=== PATIENT | male | born 1960 | race Caucasian/White ===

== ENCOUNTER 2025-07-12 14:49 | Outpatient (AMB) | payer OTHER, SELFPAY ==
--- NOTE | 2025-07-12 14:51 | A.OFFPC_ITS ---
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 Patient has not been taking his thyroid meds x 4 months. 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 ?? Prior PCP:? dr Simpson Last office visit/CPE:? . 1 yr ago Acute issue(s):? Est Care ?? PMHx:?Hypothyroidism, ? HLD, SurgHx:?None FHx:? Dad: CVA. Mom: Alzheimers. SocHx: Smokes 1ppd, EtOH Occassionally a couple dr. [facility] Colonoscopy was earlier this year. [facility]. [facility] Medical History (Updated 07/12/25 @ 15:38 by Ben Albert) Shingles Thyroid disorder Surgical History (Updated 07/12/25 @ 15:06 by Mayra Guerrier MA) Hx of colonoscopy (~2024) Family History (Updated 07/12/25 @ 15:07 by Mayra Guerrier MA) Father Cardiovascular disease Prostate cancer Maternal Grandmother Colon cancer Social History (Updated 07/12/25 @ 15:04 by Mayra Guerrier MA) Household Members: Spouse Both parents involved: No Caregiver staying overnight: No Housing: House Are you a primary animal care specialist to a significant other at home: No Do you presently have visiting nurse or other home services: No 75 years or older and lives alone: No Alcohol intake: current Alcohol intake frequency: a few times a month Patient Tobacco Use Status: Current everyday Tobacco user Cigarette Packs Per Day: 1 Cigarettes Per Day: 20 Years Smoked: 35 e-Cigarette/Vaping Use: Never Used Second Hand Smoke Exposure: No service: No Current occupational status: retired Current occupational exposures/hazards: No Cognitive needs: No Hearing needs: No Vision needs: No Questionnaire PHQ-9 Over the last 2 weeks, how often have you been bothered by any of the following problems? 1. Little interest or pleasure in doing things: not at all 2. Feeling down, depressed, or hopeless: not at all 3. Trouble falling or staying asleep, or sleeping too much: not at all 4. Feeling tired or having little energy: not at all 5. Poor appetite or overeating: not at all 6. Feeling bad about yourself - or that you are a failure or have let yourself or your family down: not at all 7. Trouble concentrating on things, such as reading the newspaper or watching television: not at all 8. Moving or speaking so slowly that other people could have noticed. Or the opposite - being so fidgety or restless that you have been moving around a lot more than usual: not at all 9. Thoughts that you would be better off or of hurting yourself in some way: not at all Total score: 0 Depression Screening Interpretation: Negative Depression Screening Done: Yes 02491 - PHQ-9 Billing: Yes Source: Developed by Drs. Olu Clark, Margie Clarke, Darnell Huang and colleagues, with an educational zion from [employer]. Thrive Questionnaire Date Thrive assessed: 07/12/25 I am a: Patient What is your living situation today?: I have a steady place to live Within the past 12 months, did the food you bought not last and you didn't have the money to get more?: Never true Within the past 12 months, did you worry whether your food would run out before you got money to buy more?: Never true Do you have trouble paying for medicines?: No Do you have trouble getting transportation to medical appointments?: I choose not to answer this question Do you have trouble paying your heating and electricity bill?: I choose not to answer this question Do you have trouble taking care of your child, family member or friend?: I choose not to answer this question Do you have trouble with day-to-day activities such as bathing, preparing meals, shopping, managing finances, etc.?: I choose not to answer this question Are you currently unemployed and looking for a job?: I choose not to answer this question Are you interested in more education?: I choose not to answer this question Please select the resources that you would like help with: None Currently or been in a relationship where the following occur: I choose not to answer THRIVE Score: 0 AUDIT C Alcohol Use Questionnaire (AUDIT-C) 1. How often do you have a drink containing alcohol?: 4 or more times a week 2. How many drinks containing alcohol do you have on a typical day when you are drinking?: 1 or 2 3. How often do you have six or more drinks on one occasion?: Never Total Score: 4 LEIGHA-7 AMB Questionnaire LEIGHA-7 Date LEIGHA - 7 assessed: 07/12/25 Feeling nervous, anxious, or on edge: 0 = Not at all Not being able to stop or control worryin = Not at all Worrying too much about different things: 0 = Not at all Trouble relaxin = Not at all Being so restless that it is hard to sit still: 0 = Not at all Becoming easily annoyed or irritable: 0 = Not at all Feeling afraid as if something awful might happen: 0 = Not at all Total LEIGHA-7 score (0-4 normal; 5-9 mild; 10-14 moderate; 15-21 severe): 0 Source: Developed by Drs. Olu Clark, Margie Clarke, Darnell Huang and colleagues, with an educational zion from [employer]. LEIGHA-7 Assessment Billing LEIGHA-7 Assessment Tool: LEIGHA-7 Assessment 26080 Review of Systems Const Denies chills, Denies fatigue, Denies fever(s), Denies headache(s) and Denies weakness Eyes Denies change in vision ENT Denies dizziness, Denies headache(s), Denies hearing loss, Denies nasal congestion, Denies sinus pain, Denies sinus pressure and Denies sore throat Card Denies chest pain, Denies lightheadedness, Denies dyspnea and Denies other (palpitations) Resp Denies cough, Denies dyspnea and Denies wheezing GI Denies abdominal pain, Denies melena, Denies hematochezia, Denies change in bowel habits, Denies dyspepsia and Denies nausea Denies hematuria and Denies dysuria Musc Denies abnormal gait, Denies myalgias, Denies arthralgias, Denies numbness and Denies tingling Skin/Breast Denies rash, Denies unusual bruising and Denies wounds Neuro Denies abnormal gait, Denies dizziness, Denies headache(s), Denies memory loss, Denies numbness, Denies Sensory deficit (Neuro), Denies tingling and Denies weakness Psych Denies anxiety, Denies depression and Denies memory loss Endo Denies cold intolerance, Denies fatigue, Denies heat intolerance, Denies polydipsia and Denies polyuria Gideon/Lymph Denies easy bleeding and Denies easy bruising Aller/Immun Denies wheezing Physical exam (Primary Care) Vital Signs: Last Vital Signs Temp 98.1 F 07/12/25 14:59 Pulse 59 07/12/25 14:59 Resp 14 07/12/25 14:59 BP 155/99 H 07/12/25 14:59 Pulse Ox 98 07/12/25 14:59 Oxygen Delivery Method Room Air 07/12/25 14:59 BMI result Body Mass Index 31.7 Tobacco/Smoking Status: Tobacco use Status Tobacco use date assessed 07/12/25 07/12/25 14:53 Patient Tobacco Use Status Current everyday Tobacco 07/12/25 15:04 e-Cigarette/Vaping Use Never Used 07/12/25 15:04 PHQ-9: PHQ-9 Score PHQ-9: Total score 0 07/12/25 14:58 Depression Screening Interpretation: Negative Thrive Assessment: Date of Thrive Assessment Date Thrive assessed 07/12/25 07/12/25 14:53 Currently or been in a relationship where the following occur: I choose not to answer Const General: no acute distress, well developed, alert and awake Nutritional Appearance: well nourished Orientation/consciousness: patient oriented x3 HENMT Head: Yes normocephalic and Yes atraumatic Ears: hearing grossly normal bilaterally and TM's normal bilaterally General nose exam: Normal external nose present and Normal nares present Mouth: Normal oral and palatal mucosa present and moist mucous membranes Teeth and gingiva: dentition normal Throat: Yes posterior oropharynx normal Eyes General: appearance normal, both eyes and all related structures Pupils: Equal, round and reactive pupils present and Pupil accommodation reflex normal EOM: EOMs intact bilaterally Neck Neck: Yes normal visual inspection, Yes no lymphadenopathy and Yes trachea midline Thyroid: Thyroid normal Carotids: no bruits Lymphatic: no lymphadenopathy noted Chest Chest palpation & inspection: normal inspection of the chest Resp Effort & Inspection: normal respiratory effort Auscultation: clear to auscultation bilaterally Cardio Rate: regular rate Rhythm: regular rhythm Heart sounds: S1 normal heart sound present, S2 normal heart sound present, no gallops, no murmurs and no rubs Bruits: no abdominal aortic bruits and no carotid bruits GI Palpation (GI): No Abdominal aortic bruit present, Soft to palpation, nontender, No hepatosplenomegaly present and No Rebound tenderness present Auscultation: normal bowel sounds General: Yes no CVA tenderness Back/Spine/Pelvis Back: no CVA tenderness Cervical Spine: cervical ROM normal and No Cervical spine tenderness Thoracic/Lumbar Spine: thoraco-lumbar ROM normal, No pain with thoraco-lumbar ROM, No thoracic spinal tenderness and No lumbar spinal tenderness Skin Lesions: no lesions Rashes: no rashes Trauma: no lacerations or abrasions Wounds: no wounds Nails: normal Neuro General: patient oriented x3 Cranial nerves: Yes Equal, round and reactive pupils present Cognition (Neuro): normal cognition Gait exam (Neuro): Normal gait present Motor exam (neuro): 5/5 motor strength present throughout Sensory Exam: No Sensory deficit (Neuro) Deep tendon reflexes (DTR's): Right patellar reflex intensity grade: 2+ and Left patellar reflex intensity grade: 2+ Extrem General: Yes normal to inspection and No edema Psych Appearance: grossly normal Affect: normal affect Attitude: cooperative Thought process: Normal thought process present Coding Level of Care Code Est Pt Level 3 (00185) Diagnoses Adult general medical examination Z00.00 Hypothyroidism E03.9 Smoker F17.200 Hyperlipidemia E78.5 Hearing loss H91.90 Screening for prostate cancer Z12.5 Screening for colon cancer Z12.11 Constipation K59.00 Hypertension I10 Additional Codes LEIGHA-7 Assessment Billing - LEIGHA-7 Assessment Tool: LEIGHA-7 Assessment 08053 ([id number]) PHQ-9 - 86735 - PHQ-9 Billing: Yes ([id number]) Assessment & Plan Assessment & Plan (1) Adult general medical examination: Code(s): Z00.00 - Encounter for general adult medical examination without abnormal findings Category: Medical Plan: 65-year-old male presents as new patient for complete physical exam Exam WNL Encouraged healthy diet with active lifestyle and plenty of exercise (2) Hypothyroidism: Code(s): E03.9 - Hypothyroidism, unspecified Category: Medical Plan: Patient has been off his levothyroxine med for about 4 months. He is uncertain of his dose Will check thyroid hormone levels He will try to get the dose information as well Will follow-up next week to discuss resuming medication. (3) Smoker: Code(s): F17.200 - Nicotine dependence, unspecified, uncomplicated Category: Social Hx Plan: Patient smokes about a pack per day Counseled patient regarding smoking and advised weaning and cessation Last LDCT was about 2 years ago Will refer for lung cancer screening (4) Hyperlipidemia: Code(s): E78.5 - Hyperlipidemia, unspecified Category: Medical Plan: Patient says he does not take medication for his cholesterol any longer Will recheck lipid levels and discuss (5) Hearing loss: Code(s): H91.90 - Unspecified hearing loss, unspecified ear Category: Medical Plan: Patient notes mild change in hearing at right ear subjectively Objectively has slight decrease in hearing at right ear to light noise (6) Screening for prostate cancer: Code(s): Z12.5 - Encounter for screening for malignant neoplasm of prostate Category: Medical Plan: PSA ordered (7) Screening for colon cancer: Code(s): Z12.11 - Encounter for screening for malignant neoplasm of colon Category: Medical Plan: Patient says [facility] Will request report (8) Constipation: Code(s): K59.00 - Constipation, unspecified Category: Medical Plan: Patient notes worsening constipation He has been off his thyroid hormone medication for about 4 months. Encouraged good hydration and will resume thyroid hormone next week after lab work is back Likely constipation will improve with the above. If not he will let me know and we can refer him back to GI (9) Hypertension: Code(s): I10 - Essential (primary) hypertension Category: Medical Plan: Starting losartan. We can follow-up at a subsequent visit Orders: Orders Complete Blood Count Auto Diff Today Z00.00 - Encounter for general adult medical examination without abnormal findings UA CC w/rflx Micro + Cult Today Z00.00 - Encounter for general adult medical examination without abnormal findings Thyroid Stimulating Hormone Today E03.9 - Hypothyroidism, unspecified Comprehensive [place]. Panel Fast Today Z00.00 - Encounter for general adult medical examination without abnormal findings Lipid Panel Today Z00.00 - Encounter for general adult medical examination without abnormal findings Prostate Specific Antigen Scr Today Z12.5 - Encounter for screening for malignant neoplasm of prostate Microalbumin, Random (w Creat) Today I10 - Essential (primary) hypertension Free T4 (Free Thyroxine) Today E03.9 - Hypothyroidism, unspecified Triiodothyronine T3 Total Today E03.9 - Hypothyroidism, unspecified Referrals Lung Cancer Screening Referral F17.200 - Nicotine dependence, unspecified, uncomplicated Audiology Referral H91.90 - Unspecified hearing loss, unspecified ear Medications: New losartan 50 mg PO DAILY 90 tabs 2RF 90 days
[2025-07-12 14:59] VITALS: BP 155/99; PULSE 59; RESP 14; TEMP 36.7; O2SAT 98; BMI 31.7
== END 2025-07-12 15:41 | disposition home or self-care (01) ==
LOC: HO.HMCFM 14:50
PROVIDERS: PCP Family Medicine; Visit Provider Family Medicine
DX: Z00.00 Encounter for general adult medical examination without abnormal findings (principal); E03.9 Hypothyroidism, unspecified; F17.200 Nicotine dependence, unspecified, uncomplicated; E78.5 Hyperlipidemia, unspecified; H91.90 Unspecified hearing loss, unspecified ear; Z12.5 Encounter for screening for malignant neoplasm of prostate; Z12.11 Encounter for screening for malignant neoplasm of colon; K59.00 Constipation, unspecified; I10 Essential (primary) hypertension

== ENCOUNTER → 2025-07-12 14:49 | Outpatient (BNVA) | payer OTHER, SELFPAY | PROVIDERS: PCP Family Medicine; Visit Provider Family Medicine | DX: Z00.00 Encounter for general adult medical examination without abnormal findings (principal); E03.9 Hypothyroidism, unspecified; E78.5 Hyperlipidemia, unspecified; H91.90 Unspecified hearing loss, unspecified ear; K59.00 Constipation, unspecified; I10 Essential (primary) hypertension; E30.9 Disorder of puberty, unspecified; F17.210 Nicotine dependence, cigarettes, uncomplicated | CPT/HCPCS: 96127 ==

== ENCOUNTER 2025-07-13 07:29 | Outpatient (REF) | payer OTHER, SELFPAY ==
[2025-07-13 11:00] LABS: MANUAL DIFF FLAG NO
[2025-07-13 11:13] LABS: Hematocrit 40.9 % (42.0-52.0); Hemoglobin 13.9 g/dl (14.0-18.0); Imm Gran Abs Auto 0.03 X10*3/uL (0.00-0.03); Imm Gran Pct Auto 0.4 % (0.0-0.4); Lymphocytes Absolute Auto 2.2 X10*3/uL (1.2-4.9); Mean Corpuscular HGB Conc 34.0 g/dl (31.0-36.0); Mean Corpuscular Hemoglobin 30.0 pg (27.0-33.0); Mean Corpuscular Volume 88.3 fL (80.0-98.0); NRBC Abs Auto 0.000 X10*3/uL (0.0-0.012); NRBC Pct Auto 0.0 /100WBC (0.0-0.2); Platelet Count 357 X10*3/uL (160-400); Red Blood Count 4.63 X10*6/uL (4.60-5.80); White Blood Count 8.1 X10*3/uL (4.8-10.8)
[2025-07-13 11:18] LABS: Appearance Urine Clear; Glucose Urine UA Negative (Negative); PH 5.5 (5.0-9.0); Specific Gravity - Urine 1.020 (1.005-1.025)
[2025-07-13 11:48] LABS: Alanine Aminotransferase 42 U/L (0-40); Albumin Level 4.4 g/dL (3.5-5.0); Alkaline Phosphatase 67 U/L (39-117); Anion Gap 13 (12-20); Aspartate Amino Transferase 92 U/L (5-37); Blood Urea Nitrogen 18 mg/dL (9-16); Calcium 9.6 mg/dL (8.4-10.2); Carbon Dioxide 29 mmol/L (22-29); Chloride 100 mmol/L (96-108); Cholesterol 332 mg/dL (<200); Estimated Glomerular Filt Rate 49; HDL Cholesterol 56 mg/dL (>40); Potassium 4.7 mmol/L (3.3-5.1); Sodium 137 mmol/L (135-145); Total Protein 7.4 g/dL (6.5-8.0); Triglycerides 141 mg/dL (<150)
[2025-07-13 11:49] LABS: Microalbum/Creatinine Ratio Ur 5.8 ug/mg cr (<30)
[2025-07-13 11:52] LABS: Free T4 (Free Thyroxine) < 0.42 ng/dL (0.71-1.85); Thyroid Stimulating Hormone 34.03 uIU/mL (0.32-4.0)
== END 2025-07-13 07:30 | disposition home or self-care (01) ==
LOC: HO.WFDLDS 07:29
PROVIDERS: Visit Provider Family Medicine
DX: Z00.00 Encounter for general adult medical examination without abnormal findings (principal); Z12.5 Encounter for screening for malignant neoplasm of prostate; E03.9 Hypothyroidism, unspecified; I10 Essential (primary) hypertension
CPT/HCPCS: 36415; 80053; 80061; 81003; 82043; 82570; 84153; 84439; 84443; 84480; 85025

== ENCOUNTER 2025-07-19 15:31 | Outpatient (AMB) | payer OTHER, SELFPAY ==
--- NOTE | 2025-07-19 15:29 | A.OFFPC_ITS ---
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 Labs drawn 07/13/25. Reviewed labs with pt. Creatinine level 1.46. Elevated liver enzymes- AST 92, ALT 42. Triglycerides 141. TC 332. LDL 248. HDL 56. TSH 34.03 uIU/L. Free T4 <0.42. Total T3 <25. HPI Comments History of Present Illness Details Documentation assistance for Thai Terry MD, was provided by Ben Albert, Clinching Machine Operator on 07/19/2025 at 3:50 PM EST. I, Dr. Terry, have read, observed, and verified documentation. [facility] Medical History (Updated 07/19/25 @ 16:00 by Ben Albert) Shingles Thyroid disorder Surgical History (Updated 07/12/25 @ 15:06 by Mayra Guerrier MA) Hx of colonoscopy (~2024) Family History (Updated 07/12/25 @ 15:07 by Mayra Guerrier MA) Father Cardiovascular disease Prostate cancer Maternal Grandmother Colon cancer Social History (Updated 07/12/25 @ 15:04 by Mayra Guerrier MA) Household Members: Spouse Both parents involved: No Caregiver staying overnight: No Housing: House Are you a primary skin care technician to a significant other at home: No Do you presently have visiting nurse or other home services: No 75 years or older and lives alone: No Alcohol intake: current Alcohol intake frequency: a few times a month Patient Tobacco Use Status: Current everyday Tobacco user Cigarette Packs Per Day: 1 Cigarettes Per Day: 20 Years Smoked: 35 e-Cigarette/Vaping Use: Never Used Second Hand Smoke Exposure: No service: No Current occupational status: retired Current occupational exposures/hazards: No Cognitive needs: No Hearing needs: No Vision needs: No Questionnaire Thrive Questionnaire Date Thrive assessed: 07/12/25 I am a: Patient What is your living situation today?: I have a steady place to live Within the past 12 months, did the food you bought not last and you didn't have the money to get more?: Never true Within the past 12 months, did you worry whether your food would run out before you got money to buy more?: Never true Do you have trouble paying for medicines?: No Do you have trouble getting transportation to medical appointments?: I choose not to answer this question Do you have trouble paying your heating and electricity bill?: I choose not to answer this question Do you have trouble taking care of your child, family member or friend?: I choose not to answer this question Do you have trouble with day-to-day activities such as bathing, preparing meals, shopping, managing finances, etc.?: I choose not to answer this question Are you currently unemployed and looking for a job?: I choose not to answer this question Are you interested in more education?: I choose not to answer this question Please select the resources that you would like help with: None Currently or been in a relationship where the following occur: I choose not to answer THRIVE Score: 0 LEIGHA-7 AMB Questionnaire LEIGHA-7 Date LEIGHA - 7 assessed: 07/12/25 Source: Developed by Drs. Olu Clark, Margie Clarke, Darnell Huang and colleagues, with an educational zion from [employer]. Review of Systems Const Denies chills, Denies fatigue, Denies fever(s), Denies headache(s) and Denies weakness ENT Denies dizziness and Denies headache(s) Card Denies dyspnea Resp Denies cough, Denies dyspnea, Denies wheezing and Denies other (shortness of breath) Musc Denies numbness and Denies tingling Neuro Denies dizziness, Denies headache(s), Denies numbness, Denies tingling and Denies weakness Psych Denies anxiety and Denies depression Endo Denies fatigue Aller/Immun Denies wheezing Physical exam (Primary Care) Tobacco/Smoking Status: Tobacco use Status Tobacco use date assessed 07/12/25 07/19/25 15:29 Patient Tobacco Use Status Current everyday Tobacco 07/19/25 15:29 e-Cigarette/Vaping Use Never Used 07/19/25 15:29 Thrive Assessment: Date of Thrive Assessment Date Thrive assessed 07/12/25 07/19/25 15:29 Currently or been in a relationship where the following occur: I choose not to answer Telehealth Telehealth Telehealth Platform: Telephone Location of provider rendering services: practice address Location of patient: address on file Patient Identification confirmed using: Name, : Yes Telehealth method: voice only Patient verbally consented to treatment: Yes Patient verbally consented to billing insurance company: Yes Patient informed of any privacy concerns related to visit: Yes Minutes spent on Phone/Video with Pt.: 9 Coding Level of Care Code Tele Est Pt Level 2 (03675) Diagnoses Hyperlipidemia E78.5 Hypothyroidism E03.9 Elevated liver enzymes R74.8 Elevated serum creatinine R79.89 Assessment & Plan Assessment & Plan (1) Hyperlipidemia: Code(s): E78.5 - Hyperlipidemia, unspecified Category: Medical Plan: LDL cholesterol is very high Start atorvastatin 40 mg daily and we will try trait as needed Recheck lipids in a couple months (2) Hypothyroidism: Code(s): E03.9 - Hypothyroidism, unspecified Category: Medical Plan: TSH is high T4 and T3 are low He had been on levothyroxine in the past Starting him on levothyroxine 75 mcg daily. Will titrate as needed Recheck in 2 months (3) Elevated liver enzymes: Code(s): R74.8 - Abnormal levels of other serum enzymes Category: Medical Plan: Liver enzymes are elevated Hydrate well Encouraged weight loss Will recheck with next blood draw (4) Elevated serum creatinine: Code(s): R79.89 - Other specified abnormal findings of blood chemistry Category: Medical Plan Mildly elevated creatinine level Increase hydration Will recheck with next blood draw Orders: Orders Comprehensive [place]. Panel Fast Today R74.8 - Abnormal levels of other serum enzymes, Z00.00 - Encounter for general adult medical examination without abnormal findings Thyroid Stimulating Hormone Today E03.9 - Hypothyroidism, unspecified Triiodothyronine T3 Total Today E03.9 - Hypothyroidism, unspecified Lipid Panel Today E78.5 - Hyperlipidemia, unspecified, Z00.00 - Encounter for general adult medical examination without abnormal findings Free T4 (Free Thyroxine) Today E03.9 - Hypothyroidism, unspecified Medications: New levothyroxine 75 mcg PO DAILY 90 caps 3RF 90 days atorvastatin (Lipitor) 40 mg PO BEDTIME 90 tabs 3RF 90 days
== END 2025-07-19 17:05 ==
LOC: HO.HMCFM 15:32
PROVIDERS: PCP Family Medicine; Visit Provider Family Medicine
DX: E78.5 Hyperlipidemia, unspecified (principal); E03.9 Hypothyroidism, unspecified; R74.8 Abnormal levels of other serum enzymes; R79.89 Other specified abnormal findings of blood chemistry

== ENCOUNTER 2025-09-03 07:52 | Outpatient (REF) | payer OTHER, SELFPAY ==
[2025-09-03 12:25] LABS: Alanine Aminotransferase 12 U/L (0-40); Albumin Level 4.2 g/dL (3.5-5.0); Alkaline Phosphatase 75 U/L (39-117); Anion Gap 12 (12-20); Aspartate Amino Transferase 31 U/L (5-37); Blood Urea Nitrogen 22 mg/dL (9-16); Calcium 9.0 mg/dL (8.4-10.2); Carbon Dioxide 28 mmol/L (22-29); Chloride 104 mmol/L (96-108); Cholesterol 130 mg/dL (<200); Estimated Glomerular Filt Rate > 60; Free T4 (Free Thyroxine) 0.72 ng/dL (0.71-1.85); HDL Cholesterol 38 mg/dL (>40); Potassium 4.6 mmol/L (3.3-5.1); Sodium 139 mmol/L (135-145); Thyroid Stimulating Hormone 27.10 uIU/mL (0.32-4.0); Total Protein 7.1 g/dL (6.5-8.0); Triglycerides 73 mg/dL (<150)
== END 2025-09-03 07:53 | disposition home or self-care (01) ==
LOC: HO.WFDLDS 07:52
PROVIDERS: Visit Provider Family Medicine
DX: Z00.00 Encounter for general adult medical examination without abnormal findings (principal); R74.8 Abnormal levels of other serum enzymes; E03.9 Hypothyroidism, unspecified; E78.5 Hyperlipidemia, unspecified
CPT/HCPCS: 36415; 80053; 80061; 84439; 84443; 84480

== ENCOUNTER 2025-09-17 10:08 | Outpatient (AMB) | payer OTHER, SELFPAY ==
--- NOTE | 2025-09-17 10:19 | A.OFFPC_ITS ---
Vital Signs 09/17/25 10:21 Height 5 ft 10 in Weight 205 lb 6 oz BMI 29.5 BP 116/74 Blood Pressure Location Rt brachial Position Sitting Pulse 71 Pulse Source Pulse Oximeter Pulse Oximetry (%) 95 Oxygen Delivery Method Room Air Intake Visit Reasons: f/u lipids, hypothyroidism, labs, HTN Allergies No Known Allergies Allergy (Verified 09/17/25 10:21) Medication List - Last Reconciled 09/17/25 by Thai Terry MD atorvastatin (Lipitor) 40 mg PO BEDTIME 90 days levothyroxine 100 mcg PO DAILY 90 days losartan 50 mg PO DAILY 90 days sildenafil 50 mg PO DAILY PRN 90 days Tobacco use date assessed: 09/17/25 Fall risk assessment: No Falls in past year Last assessed Fall Risk: 09/17/25 Dental Screening Dental Screen Date: 09/17/25 Did you have a dental visit in the last 12 months?: Yes Did you have a dental problem in the last 6 months where you did not have access to dental care?: No Was dental information given to patient?: Patient has dentist HPI f/u lipids, hypothyroidism, labs, HTN HPI Details 65 y/o male presents to f/u HTN, labs. Labs drawn 09/03/25. Reviewed labs with pt. Triglycerides 73. TC 130. LDL 78. HDL low at 38. He is on artovastatin 40mg. TSH 27.10 uIU/mL. Free T4 0.72. Total T3 65 ng/dL. He is on levothyroxine 75 mcg daily. Blood pressure today 116/74, 71p. He is on losartan 50mg daily. Pt requests a flu shot today. Has complaints of some erectile dysfunction. HPI Comments History of Present Illness Details Documentation assistance for Thai Terry MD, was provided by Ben Albert,Candy Senior [employer] Network Engineer on 09/17/2025 at 11:03 AM EST. Hernandez, Dr. Terry, have read, observed, and verified documentation. [facility] Medical History Nicotine dependence, cigarettes, uncomplicated Shingles Thyroid disorder Surgical History Hx of colonoscopy (~2024) Family History Father Cardiovascular disease Prostate cancer Maternal Grandmother Colon cancer Social History Household Members: Spouse Both parents involved: No Caregiver staying overnight: No Housing: House Are you a primary healthcare recruiter to a significant other at home: No Do you presently have visiting nurse or other home services: No 75 years or older and lives alone: No Alcohol intake: current Alcohol intake frequency: a few times a month Patient Tobacco Use Status: Current everyday Tobacco user Cigarette Packs Per Day: 1 Cigarettes Per Day: 20 Years Smoked: 35 e-Cigarette/Vaping Use: Never Used Second Hand Smoke Exposure: No service: No Current occupational status: retired Current occupational exposures/hazards: No Cognitive needs: No Hearing needs: No Vision needs: No Questionnaire PHQ-9 Over the last 2 weeks, how often have you been bothered by any of the following problems? 1. Little interest or pleasure in doing things: not at all 2. Feeling down, depressed, or hopeless: not at all 3. Trouble falling or staying asleep, or sleeping too much: not at all 4. Feeling tired or having little energy: not at all 5. Poor appetite or overeating: not at all 6. Feeling bad about yourself - or that you are a failure or have let yourself or your family down: not at all 7. Trouble concentrating on things, such as reading the newspaper or watching television: not at all 8. Moving or speaking so slowly that other people could have noticed. Or the opposite - being so fidgety or restless that you have been moving around a lot more than usual: not at all 9. Thoughts that you would be better off or of hurting yourself in some way: not at all Total score: 0 Depression Screening Interpretation: Negative Depression Screening Done: Yes Source: Developed by Drs. Olu Clark, Margie Clarke, Darnell Huang and colleagues, with an educational zion from [employer]. Thrive Questionnaire Date Thrive assessed: 07/12/25 I am a: Patient What is your living situation today?: I have a steady place to live Within the past 12 months, did the food you bought not last and you didn't have the money to get more?: Never true Within the past 12 months, did you worry whether your food would run out before you got money to buy more?: Never true Do you have trouble paying for medicines?: No Do you have trouble getting transportation to medical appointments?: I choose not to answer this question Do you have trouble paying your heating and electricity bill?: I choose not to answer this question Do you have trouble taking care of your child, family member or friend?: I choose not to answer this question Do you have trouble with day-to-day activities such as bathing, preparing meals, shopping, managing finances, etc.?: I choose not to answer this question Are you currently unemployed and looking for a job?: I choose not to answer this question Are you interested in more education?: I choose not to answer this question Please select the resources that you would like help with: None Currently or been in a relationship where the following occur: I choose not to answer THRIVE Score: 0 AUDIT C Alcohol Use Questionnaire (AUDIT-C) 1. How often do you have a drink containing alcohol?: 2-3 times a week 2. How many drinks containing alcohol do you have on a typical day when you are drinking?: 1 or 2 3. How often do you have six or more drinks on one occasion?: Never Total Score: 3 LEIGHA-7 AMB Questionnaire LEIGHA-7 Date LEIGHA - 7 assessed: 07/12/25 Feeling nervous, anxious, or on edge: 0 = Not at all Not being able to stop or control worryin = Not at all Worrying too much about different things: 0 = Not at all Trouble relaxin = Not at all Being so restless that it is hard to sit still: 0 = Not at all Becoming easily annoyed or irritable: 0 = Not at all Feeling afraid as if something awful might happen: 0 = Not at all Total LEIGHA-7 score (0-4 normal; 5-9 mild; 10-14 moderate; 15-21 severe): 0 Source: Developed by Drs. Olu Clark, Margie Clarke, Darnell Huang and colleagues, with an educational zion from [employer]. Review of Systems Const Denies chills, Denies fatigue, Denies fever(s), Denies headache(s) and Denies we akness ENT Denies dizziness and Denies headache(s) Card Denies dyspnea Resp Denies cough, Denies dyspnea, Denies wheezing and Denies other (shortness of breath) Musc Denies numbness and Denies tingling Neuro Denies dizziness, Denies headache(s), Denies numbness, Denies tingling and Denies weakness Psych Denies anxiety and Denies depression Endo Denies fatigue Aller/Immun Denies wheezing Physical exam (Primary Care) Vital Signs: Last Vital Signs Pulse 71 09/17/25 10:21 BP 116/74 09/17/25 10:21 Pulse Ox 95 09/17/25 10:21 Oxygen Delivery Method Room Air 09/17/25 10:21 BMI result Body Mass Index 29.5 Tobacco/Smoking Status: Tobacco use Status Tobacco use date assessed 09/17/25 09/17/25 10:22 Patient Tobacco Use Status Current everyday Tobacco 09/17/25 10:22 e-Cigarette/Vaping Use Never Used 09/17/25 10:22 PHQ-9: PHQ-9 Score PHQ-9: Total score 0 09/17/25 11:03 Depression Screening Interpretation: Negative Thrive Assessment: Date of Thrive Assessment Date Thrive assessed 07/12/25 09/17/25 10:22 Currently or been in a relationship where the following occur: I choose not to answer Const General: well developed; No acute distress Nutritional Appearance: well nourished Orientation/consciousness: patient oriented x3 HENMT Head: Yes normocephalic and Yes atraumatic Eyes General: appearance normal, both eyes and all related structures Pupils: Equal, round and reactive pupils present EOM: EOMs intact bilaterally Resp Effort & Inspection: normal respiratory effort Neuro General: patient oriented x3 and gait normal Cranial nerves: Yes Equal, round and reactive pupils present Psych Affect: normal affect Coding Level of Care Code Est Pt Level 4 (74486) Diagnoses Hypertension I10 Hyperlipidemia E78.5 Hypothyroidism E03.9 Erectile dysfunction N52.9 Immunization counseling Z71.85 Assessment & Plan Assessment & Plan (1) Hypertension: Code(s): I10 - Essential (primary) hypertension Category: Medical Plan: Blood pressure now well controlled. Goal is less than 140/90 Continue current medication (2) Hyperlipidemia: Code(s): E78.5 - Hyperlipidemia, unspecified Category: Medical Plan: LDL cholesterol much improved and now at goal of less than 100 HDL is slightly low. Increase exercise and ratio of Sayre 3 fatty acids in diet (3) Hypothyroidism: Code(s): E03.9 - Hypothyroidism, unspecified Category: Medical Plan: TSH level has improved on increase levothyroxine however it is still above goal Will increase levothyroxine from 75 mcg daily to 100 mcg daily Recheck prior to next visit (4) Erectile dysfunction: Code(s): N52.9 - Male erectile dysfunction, unspecified Category: Medical Plan: Patient has used sildenafil in the past. Resume sildenafil (5) Immunization counseling: Code(s): Z71.85 - Encounter for immunization safety counseling Category: Medical Plan: Due for flu shot-he will receive this in the office today Orders: Orders Influenza [id number] Immunization Today Z23 - Encounter for immunization Free T4 (Free Thyroxine) Today E03.9 - Hypothyroidism, unspecified Comprehensive Varnell. Panel Fast Today Z00.00 - Encounter for general adult medical examination without abnormal findings Lipid Panel Today Z00.00 - Encounter for general adult medical examination without abnormal findings Thyroid Stimulating Hormone Today E03.9 - Hypothyroidism, unspecified Triiodothyronine T3 Total Today E03.9 - Hypothyroidism, unspecified Medications: New Fluarix [id number] (PF) (flu vac ts (6mos up)-PF) 0.5 mL IM ONCE 0.5 mL 0RF NS Z23 - Encounter for immunization sildenafil administer 30 minutes to 4 hours before activity 50 mg PO DAILY PRN 20 tabs 3RF sexual activity 90 days Changed From levothyroxine (Synthroid) 75 mcg PO DAILY 90 days 90 tabs 3RF To levothyroxine 100 mcg PO DAILY 90 tabs 3RF 90 days
[2025-09-17 10:21] VITALS: BP 116/74; PULSE 71; O2SAT 95; BMI 29.5
== END 2025-09-17 11:25 | disposition home or self-care (01) ==
LOC: HO.HMCFM 10:09
PROVIDERS: PCP Family Medicine; Visit Provider Family Medicine
DX: I10 Essential (primary) hypertension (principal); E78.5 Hyperlipidemia, unspecified; E03.9 Hypothyroidism, unspecified; N52.9 Male erectile dysfunction, unspecified; Z71.85 Encounter for immunization safety counseling; Z23 Encounter for immunization

== ENCOUNTER → 2025-09-17 10:08 | Outpatient (BNVA) | payer OTHER, SELFPAY | PROVIDERS: PCP Family Medicine; Visit Provider Family Medicine | DX: Z71.85 Encounter for immunization safety counseling (principal); Z23 Encounter for immunization; I10 Essential (primary) hypertension; E78.5 Hyperlipidemia, unspecified; E03.9 Hypothyroidism, unspecified; N52.9 Male erectile dysfunction, unspecified | CPT/HCPCS: 90471; 90656; 96127 ==